=== PATIENT | male | born 1985 | race American Indian/Alaskan Native ===

== ENCOUNTER 2017-04-28 09:31 | Emergency (ER) | payer MEDICAID, OTHER ==
--- NOTE | 2017-04-28 09:46 | EDM.PDOC ---
ED HPI GENERAL MEDICAL PROBLEM - General Stated Complaint: LEFT SHOULDER OUT OF JOINT Time Seen by Provider: 04/28/17 09:35 Source of Information: Reports: Patient History Limitations: Reports: No Limitations - History of Present Illness INITIAL COMMENTS - FREE TEXT/NARRATIVE: This 32 yo male patient reports to the ED with left shoulder pain. The patient reports about 20-25 minutes ago he was outside with his child and was swinging on a pole when he thinks his shoulder got popped out of joint. The patient reports his father attempted to put it back into place once. The patient reports after his father attempted to get his shoulder back, he noticed numbness in his left arm. The patient rates his pain at a 9/10 at the time of assessment. The patient was able to move his left hand, but movements were limited by pain. Onset: Today Onset Date: 04/28/17 Onset Time: 09:15 Duration: Minutes:, Constant Location: Reports: Upper Extremity, Left Quality: Reports: Ache, Sharp, Throbbing Severity: Severe Improves with: Reports: None Worsens with: Reports: None Context: Reports: Other Associated Symptoms: Reports: No Other Symptoms - Related Data Allergies Allergy/AdvReac Type Severity Reaction Status Date / Time codeine Allergy Swelling Verified 04/28/17 09:38 ketorolac [From Toradol] Allergy Hives Verified 04/28/17 09:38 Home Meds: Home Meds Gabapentin [Neurontin] 800 mg PO QID 04/28/17 [History] cloNIDine [Catapres] 0.1 mg PO BID 04/28/17 [History] hydrOXYzine HCl [Atarax] 10 mg PO TID 04/28/17 [History] Review of Systems - Review of Systems Review Of Systems: ROS reveals no pertinent complaints other than HPI. ED EXAM, GENERAL - Physical Exam Exam: See Below Exam Limited By: No Limitations General Appearance: Alert, WD/WN, Moderate Distress, Thin Eye Exam: Bilateral Eye: EOMI, Normal Inspection, PERRL Ears: Normal External Exam, Normal Canal, Hearing Grossly Normal, Normal TMs Nose: Normal Inspection, Normal Mucosa, No Blood Throat/Mouth: Normal Inspection, Normal Lips, Normal Teeth, Normal Gums, Normal Oropharynx, Normal Voice, No Airway Compromise Head: Atraumatic, Normocephalic Neck: Normal Inspection, Supple, Non-Tender, Full Range of Motion Respiratory/Chest: No Respiratory Distress, Lungs Clear, Normal Breath Sounds, No Accessory Muscle Use, Chest Non-Tender Cardiovascular: Normal Peripheral Pulses, Regular Rate, Rhythm, No Edema, No Gallop, No JVD, No Murmur, No Rub GI/Abdominal: Normal Bowel Sounds, Soft, Non-Tender, No Organomegaly, No Distention, No Abnormal Bruit, No Mass (Male) Exam: Deferred Rectal (Males) Exam: Deferred Back Exam: Normal Inspection, Full Range of Motion, NT Extremities: Arm Pain (left shoulder pain with deformity) Neurological: Alert, Oriented, CN II-XII Intact, Normal Cognition, Normal Gait Psychiatric: Normal Affect, Normal Mood Skin Exam: Warm, Dry, Intact, Normal Color, No Rash Lymphatic: No Adenopathy Course - Vital Signs Last Recorded V/S: Last Vital Signs Temp 36.9 C 04/28/17 09:40 Pulse 115 H 04/28/17 09:40 Resp 20 04/28/17 09:40 BP 127/95 H 04/28/17 09:40 Pulse Ox 96 04/28/17 09:40 - Orders/Labs/Meds Orders: Active Orders 24 hr Category Date Time Status Shoulder Comp Lt [CR] Urgent Exams 04/28/17 09:38 Ordered DME for Discharge [COMM] Urgent Oth 04/28/17 10:21 Ordered - Re-Assessments/Exams Free Text/Narrative Re-Assessment/Exam: 04/28/17 10:23 The patient was advised of the x-ray results during the visit. The patient was awoken from sleep to give the x-ray results. The patient was having difficulties speaking due to taking his Clonidine prior to coming to the ED. Departure - Departure Time of Disposition: 10:24 Disposition: Home, Self-Care 01 Condition: Fair Clinical Impression: Left shoulder strain Qualifiers: Encounter type: initial encounter Qualified Code(s): S46.912A - Strain of unspecified muscle, fascia and tendon at shoulder and upper arm level, left arm , initial encounter - Discharge Information Instructions: Shoulder Sprain Care Plan Goals: The patient was advised of the examination and x-ray results during the visit. The patient was placed in a right shoulder immobilizer and given an oral dose of [place] while in the ED. The patient was advised to follow-up with his primary care facility or orthopedic provider for continued evaluation and further management. - My Orders Last 24 Hours: My Active Orders 04/28/17 09:38 Shoulder Comp Lt [CR] Urgent 04/28/17 10:21 DME for Discharge [COMM] Urgent - Assessment/Plan Last 24 Hours: My Active Orders 04/28/17 09:38 Shoulder Comp Lt [CR] Urgent 04/28/17 10:21 DME for Discharge [COMM] Urgent
[2017-04-28] MEDS ORDERED: Acetaminophen/HYDROcodone 325-10 MG Tab PO ONE (10:27)
== END 2017-04-28 10:38 | disposition home or self-care (01) ==
LOC: DL.ED 09:31 → MERGE 09:31 → DL.ED 10:38
DX: S46.912A Strain of unspecified muscle, fascia and tendon at shoulder and upper arm level, left arm, initial encounter (principal); Z88.5 Allergy status to narcotic agent; Z88.8 Allergy status to other drugs, medicaments and biological substances; X50.9XXA Other and unspecified overexertion or strenuous movements or postures, initial encounter
CPT/HCPCS: 73030; 99283; A9270

== ENCOUNTER 2017-08-29 16:37 | Emergency (ER) | payer MEDICAID ==
[2017-08-29] MEDS ORDERED: LORazepam 1 MG Tab PO ONE (17:32)
[2017-08-29 18:09] LABS: ANION GAP 10.6; CHLORIDE,CL 104 mmol/L (101-111); SODIUM,NA 138 mmol/L (135-145)
--- NOTE | 2017-08-29 18:39 | EDM.PDOCBH ---
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 He states that he was very jittery and anxious. He states he has been having some thoughts about dying, but does not have a plan does not think that he would hurt himself. Pt asks if he can have something to calm him down. Onset: Gradual - Related Data Allergies Allergy/AdvReac Type Severity Reaction Status Date / Time codeine Allergy Swelling Verified 03/31/17 16:02 MDT ketorolac [From Toradol] Allergy Itching Verified 03/31/17 16:02 MDT Home Meds: Home Meds Albuterol [Proventil HFA] 2 puff INH QID PRN #1 inhaler 03/29/17 [Rx] Albuterol [Ventolin Syrup 2 MG/5 ML] 1 dose INH DAILY PRN 03/29/17 [History] Gabapentin [Neurontin] 800 mg PO QID #20 tablet 03/29/17 [Rx] Gabapentin [Neurontin] 800 mg PO TID 03/29/17 [History] cloNIDine HCl [Catapres] 0.2 mg PO BEDTIME #5 tablet 03/29/17 [Rx] cloNIDine [Catapres] 0.5 mg PO DAILY 03/29/17 [History] oxyCODONE HCl/Acetaminophen [Percocet 5-325 mg Tablet] 1 each PO Q6H PRN #20 tablet 03/29/17 [Rx] Past Medical History HEENT History: Reports: None Cardiovascular History: Reports: Hypertension Respiratory History: Reports: Asthma Gastrointestinal History: Reports: None Genitourinary History: Reports: None Musculoskeletal History: Reports: Fracture Neurological History: Reports: None Psychiatric History: Reports: Anxiety, Depression Endocrine/Metabolic History: Reports: None Hematologic History: Reports: None Immunologic History: Reports: None Oncologic (Cancer) History: Reports: None Dermatologic History: Reports: None - Infectious Disease History Infectious Disease History: Reports: None - Past Surgical History HEENT Surgical History: Reports: None Respiratory Surgical History: Reports: None GI Surgical History: Reports: None Endocrine Surgical History: Reports: None Musculoskeletal Surgical History: Reports: None Social & Family History - Family History Family Medical History: Noncontributory - Tobacco Use Smoking Status *Q: Current Every Day Smoker Years of Tobacco use: 4 Packs/Tins Daily: 0.5 Second Hand Smoke Exposure: No - Caffeine Use Caffeine Use: Reports: Soda - Recreational Drug Use Recreational Drug Use: Yes Drug Use in Last 12 Months: Yes Recreational Drug Type: Reports: Methamphetamine Recreational Drug Use Frequency: Daily Recreational Drug Last Use: 08-25-17 ED ROS GENERAL - Review of Systems Review Of Systems: ROS reveals no pertinent complaints other than HPI. ED EXAM, BEHAVIORAL HEALTH - Physical Exam Exam: See Below Exam Limited By: No Limitations General Appearance: Alert, WD/WN, Anxious Eye Exam: Bilateral Eye: EOMI, Normal Inspection, PERRL Ears: Normal External Exam, Hearing Grossly Normal Nose: Normal Inspection Throat/Mouth: Normal Inspection, Normal Voice, No Airway Compromise Head: Atraumatic, Normocephalic Neck: Normal Inspection Respiratory/Chest: No Respiratory Distress, Lungs Clear, Normal Breath Sounds, No Accessory Muscle Use, Chest Non-Tender Cardiovascular: Normal Peripheral Pulses, Regular Rate, Rhythm, No Edema, No Gallop, No JVD, No Murmur, No Rub GI/Abdominal: Normal Bowel Sounds, Soft, Non-Tender, No Distention (Male) Exam: Deferred Rectal (Males) Exam: Deferred Back Exam: Normal Inspection, Full Range of Motion Extremities: Normal Inspection, Normal Range of Motion, Non-Tender, Normal Capillary Refill, No Pedal Edema Neurological: Alert, Normal Mood/Affect, CN II-XII Intact, Normal Cognition, Normal Gait, Normal Reflexes, No Motor/Sensory Deficits, Oriented x 3 Psychiatric: Alert, Normal Cognition, Oriented, Restless Skin Exam: Warm, Dry, Intact, Normal color, No rash COURSE, BEHAVIORAL HEALTH COMP - Course Vital Signs: Last Vital Signs Temp 97.6 F 08/29/17 16:49 Pulse 95 08/29/17 16:49 Resp 18 08/29/17 16:49 BP 143/81 H 08/29/17 16:49 Pulse Ox 98 08/29/17 16:49 Orders, Labs, Meds: Laboratory Tests 08/29/17 08/29/17 08/29/17 Range/Units 17:00 17:00 17:36 WBC 8.2 (5.0-10.0) 10^3/uL RBC 5.03 (4.6-6.2) 10^6/uL Hgb 15.0 (14.0-18.0) g/dL Hct 44.0 (40.0-54.0) % MCV 87.5 (80-100) fL MCH 29.8 (27.0-34.0) pg MCHC 34.1 (33.0-35.0) g/dL Plt Count 298 (150-450) 10^3/uL Neut % (Auto) 40.1 L (42.2-75.2) % Lymph % (Auto) 40.1 (20.5-50.1) % [place] % (Auto) 14.7 H (2-8) % Eos % (Auto) 4.0 H (1.0-3.0) % Baso % (Auto) 1.1 H (0.0-1.0) % Add Manual Diff Yes Neutrophils % (Manual) 40 L (42-75) % Lymphocytes % (Manual) 49 (20-50) % Monocytes % (Manual) 9 H (2-8) % Eosinophils % (Manual) 2 (1-3) % Platelet Estimate Adequate Giant Platelets Few Sodium (135-145) mmol/L Potassium (3.6-5.0) mmol/L Chloride (101-111) mmol/L Carbon Dioxide (21.0-31.0) mmol/L Anion Gap BUN (7-18) mg/dL Creatinine (0.6-1.3) mg/dL Est Cr Clr Drug Dosing mL/min Estimated GFR (MDRD) BUN/Creatinine Ratio Glucose (74-105) mg/dL Calcium (8.4-10.2) mg/dl Magnesium (1.8-2.5) mg/dL Total Bilirubin (0.2-1.0) mg/dL AST (10-42) IU/L ALT (10-60) IU/L Alkaline Phosphatase (42-121) IU/L Total Protein (6.7-8.2) g/dl Albumin (3.2-5.5) g/dl Globulin Albumin/Globulin Ratio TSH, Ultra Sensitive (0.45-5.33) uIu/mL Urine Color Yellow (YELLOW) Urine Appearance Clear (CLEAR) Urine pH 7.0 (5.0-9.0) Ur Specific [place] 1.015 (1.005-1.030) Urine Protein Negative (NEGATIVE) Urine Glucose (UA) Negative (NEGATIVE) Urine Ketones Negative (NEGATIVE) Urine Occult Blood Negative (NEGATIVE) Urine Nitrite Negative (NEGATIVE) Urine Bilirubin Negative (NEGATIVE) Urine Urobilinogen 0.2 (0.2-1.0) mg/dL Ur Leukocyte Esterase Negative (NEGATIVE) Urine RBC 0-5 /HPF Urine WBC 0-5 (0-5/HPF) /HPF Ur Epithelial Cells Not seen /HPF Urine Bacteria Rare (0-FEW/HPF) /HPF Urine Opiates Screen Negative (NEGATIVE) Ur Oxycodone Screen Negative (NEGATIVE) Urine Methadone Screen Negative (NEGATIVE) Ur Barbiturates Screen Negative (NEGATIVE) U Tricyclic Antidepress Negative (NEGATIVE) Ur Phencyclidine Scrn Negative (NEGATIVE) Ur Amphetamine Screen Negative (NEGATIVE) U Methamphetamines Scrn Negative (NEGATIVE) Urine MDMA Screen Negative (NEGATIVE) U Benzodiazepines Scrn Negative (NEGATIVE) Urine Cocaine Screen Negative (NEGATIVE) U Marijuana (THC) Screen Negative (NEGATIVE) Ethyl Alcohol mg/dL 08/29/17 08/29/17 Range/Units 17:36 17:36 WBC (5.0-10.0) 10^3/uL RBC (4.6-6.2) 10^6/uL Hgb (14.0-18.0) g/dL Hct (40.0-54.0) % MCV (80-100) fL MCH (27.0-34.0) pg MCHC (33.0-35.0) g/dL Plt Count (150-450) 10^3/uL Neut % (Auto) (42.2-75.2) % Lymph % (Auto) (20.5-50.1) % [place] % (Auto) (2-8) % Eos % (Auto) (1.0-3.0) % Baso % (Auto) (0.0-1.0) % Add Manual Diff Neutrophils % (Manual) (42-75) % Lymphocytes % (Manual) (20-50) % Monocytes % (Manual) (2-8) % Eosinophils % (Manual) (1-3) % Platelet Estimate Giant Platelets Sodium 138 (135-145) mmol/L Potassium 3.6 (3.6-5.0) mmol/L Chloride 104 (101-111) mmol/L Carbon Dioxide 27.0 (21.0-31.0) mmol/L Anion Gap 10.6 BUN 7 (7-18) mg/dL Creatinine 0.8 (0.6-1.3) mg/dL Est Cr Clr Drug Dosing 130.63 mL/min Estimated GFR (MDRD) > 60 BUN/Creatinine Ratio 8.75 Glucose 91 (74-105) mg/dL Calcium 8.4 (8.4-10.2) mg/dl Magnesium 1.9 (1.8-2.5) mg/dL Total Bilirubin 0.5 (0.2-1.0) mg/dL AST 28 (10-42) IU/L ALT 29 (10-60) IU/L Alkaline Phosphatase 74 (42-121) IU/L Total Protein 6.4 L (6.7-8.2) g/dl Albumin 3.7 (3.2-5.5) g/dl Globulin 2.7 Albumin/Globulin Ratio 1.37 TSH, Ultra Sensitive 1.07 (0.45-5.33) uIu/mL Urine Color (YELLOW) Urine Appearance (CLEAR) Urine pH (5.0-9.0) Ur Specific [place] (1.005-1.030) Urine Protein (NEGATIVE) Urine Glucose (UA) (NEGATIVE) Urine Ketones (NEGATIVE) Urine Occult Blood (NEGATIVE) Urine Nitrite (NEGATIVE) Urine Bilirubin (NEGATIVE) Urine Urobilinogen (0.2-1.0) mg/dL Ur Leukocyte Esterase (NEGATIVE) Urine RBC /HPF Urine WBC (0-5/HPF) /HPF Ur Epithelial Cells /HPF Urine Bacteria (0-FEW/HPF) /HPF Urine Opiates Screen (NEGATIVE) Ur Oxycodone Screen (NEGATIVE) Urine Methadone Screen (NEGATIVE) Ur Barbiturates Screen (NEGATIVE) U Tricyclic Antidepress (NEGATIVE) Ur Phencyclidine Scrn (NEGATIVE) Ur Amphetamine Screen (NEGATIVE) U Methamphetamines Scrn (NEGATIVE) Urine MDMA Screen (NEGATIVE) U Benzodiazepines Scrn (NEGATIVE) Urine Cocaine Screen (NEGATIVE) U Marijuana (THC) Screen (NEGATIVE) Ethyl Alcohol < 5 mg/dL Medications Discontinued Medications Generic Name Dose Route Start Last Admin Trade Name Freq PRN Reason Stop Dose Admin Lorazepam 1 mg 08/29/17 17:32 08/29/17 17:57 Ativan PO 08/29/17 17:33 Not Given ONETIME ONE Re-Assessment/Re-Exam: Crisis Line was notified. SARBJIT Clayton from [facility] and Crisis Line stated that he can be sent to group home with a hold for 24 hours until he can be seen in the morning. Patient was anxious and kept asking for medication to calm him down and stating that he will leave and go back to the CRU. Patient walked out without being discharged. Matilde Dowd was notified at Crisis Line that patient left without being discharged. Departure - Departure Time of Disposition: 18:39 Disposition: Against Medical Advice 07 Condition: Fair Clinical Impression: Depressive disorder, Drug-seeking behavior - Discharge Information Forms: ED Department Discharge
== END 2017-08-29 18:43 | disposition left against medical advice (07) ==
LOC: DL.ED 16:37 → MERGE 16:37 → DL.ED 18:43
DX: F32.9 Major depressive disorder, single episode, unspecified (principal); Z76.5 Malingerer [conscious simulation]; I10 Essential (primary) hypertension; J45.909 Unspecified asthma, uncomplicated; F17.210 Nicotine dependence, cigarettes, uncomplicated; Z79.899 Other long term (current) drug therapy; Z88.5 Allergy status to narcotic agent; Z88.6 Allergy status to analgesic agent
CPT/HCPCS: 36415; 80053; 80305; 81001; 83735; 84443; 85025; 99284; G0480

== ENCOUNTER 2020-07-24 13:43 | Observation (INO) | payer MEDICAID, OTHER ==
[2020-07-24] MEDS: LORazepam 2 MG/ML SDV IVPUSH PRN ×2 (13:36→19:52)
[~2020-07-24 13:43] MED LIST: LORazepam 2 MG/ML SDV ONE; levETIRAcetam in NaCl (iso-os) 100 ML ONE; levETIRAcetam in NaCl (iso-os) 500 MG in Premix Bag 1 BAG IV ONE
[2020-07-24 14:07] LABS: ANION GAP 13.3 mEq/L (7-13); CHLORIDE,CL 103 mmol/L (98-107); SODIUM,NA 135 mmol/L (136-145)
[2020-07-24] MEDS ORDERED: Naproxen 500 MG Tab PO ONE (15:07)
--- NOTE | 2020-07-24 15:13 | CR ---
EXAMINATION: Shoulder Comp Lt SEX: Male AGE: 35 years CLINICAL history: INTERPRETATION: 1. CONCLUSION: 35-year-old male left shoulder pain following a seizure Interpretation: Prominent Hill-Sachs notch like deformity lateral aspect humeral head consistent with previous dislocation. No sign of pathologic skeletal lesion, acute left shoulder fracture or glenohumeral dislocation. Chronic arthritic changes ipsilateral acromioclavicular joint. No fractures of the underlying bony thorax. Left lung apex clear. CONCLUSION: No acute fracture or dislocation left shoulder.
--- NOTE | 2020-07-24 15:18 | CT ---
EXAMINATION: Head wo Cont SEX: Male AGE: 35 years CLINICAL HISTORY: 35-year-old male complaining of postictal PAIN (seizure like activity). Scan technique: Volume acquisition of data emergency unenhanced CT scan of the head and brain obtained with patient lying supine on the Siemens multislice scanner [place], [place]. All data archived in the PACS system for storage, reformatting axial/sagittal/coronal planes and study (bone/brain windows). Interpretation: 1. Uniformly thick bony calvarium without sign of skull fracture, underlying brain contusion or epidural/subdural hematoma. 2. Symmetric clear pneumatization of the paranasal and mastoid sinuses. 3. Symmetric wilkes-white matter pattern (mild atrophy over the convexities). Mirror-image normal ventricular system i.e. no hydrocephalus. 4. No supratentorial or posterior fossa mass lesion. 5. No areas of ischemic infarct or encephalomalacia. No arachnoid cyst. 6. Cerebellum and brainstem unremarkable. 7. No sign of acute intracerebral, intraventricular or subarachnoid bleed. CONCLUSION: No sign of skull fracture, intracranial mass or bleed.
--- NOTE | 2020-07-24 15:55 | EDM.PDOC ---
ED HPI GENERAL MEDICAL PROBLEM - General Chief Complaint: Neuro Symptoms/Deficits Time Seen by Provider: 07/24/20 13:45 Source of Information: Reports: Patient, EMS, EMS Notes Reviewed, Police, RN, RN Notes Reviewed History Limitations: Reports: No Limitations - History of Present Illness INITIAL COMMENTS - FREE TEXT/NARRATIVE: Pt is a 35 year old male who presents to ER per [facility] from [facility] accompanied by Distribution Systems Serviceperson with c/o seizure like activity. Patient and CO state he had seizures this am at the correction, approx 4-5 seizures that lasted 30 seconds or less. Patient states with the first seizure he fell and injured his left shoulder. 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 Shortly after arrival, patient had another 30second seizure like activity. Patient did not display any post-ictal actions other than stuttering with talking. Patient did respond to pain during the seizure like activity. Patient states his first seizure was approx 2 weeks ago, and he was prescribed Keppra at that time by Dr. Velasco at [place]. He states he again had seizure like activity 2 days ago and the Keppra dosage was increased. He states he is set up to see a Neurologist, but unsure when. Patient does c/o pain in the left shoulder. Onset: Today, Sudden Left Shoulder Pain Score (Numeric/FACES): 7 - Related Data Allergies Allergy/AdvReac Type Severity Reaction Status Date / Time codeine Allergy Swelling Verified 07/24/20 13:37 ketorolac [From Toradol] Allergy Hives Verified 07/24/20 13:37 Home Meds: Home Meds Albuterol [IJP: Ventolin HFA] 2 puff INH .TWICE DAILY PRN 09/17/17 [History] Gabapentin [Neurontin] 900 mg PO TID 07/24/20 [History] Naproxen 500 mg PO DAILY 07/24/20 [History] levETIRAcetam [Levetiracetam ER] 500 mg PO BID 07/24/20 [History] lisinopriL [Lisinopril] 10 mg PO 07/24/20 [History] Past Medical History HEENT History: Reports: None Cardiovascular History: Reports: Hypertension Respiratory History: Reports: Asthma Gastrointestinal History: Reports: None Genitourinary History: Reports: None Musculoskeletal History: Reports: Fibromyalgia, Fracture, Other (See Below) Other Musculoskeletal History: carpel tunnel Neurological History: Reports: None Psychiatric History: Reports: Addiction, Anxiety, Depression Endocrine/Metabolic History: Reports: None Hematologic History: Reports: None Immunologic History: Reports: None Oncologic (Cancer) History: Reports: None Dermatologic History: Reports: None - Infectious Disease History Infectious Disease History: Reports: None - Past Surgical History HEENT Surgical History: Reports: None Respiratory Surgical History: Reports: None GI Surgical History: Reports: None Endocrine Surgical History: Reports: None Musculoskeletal Surgical History: Reports: Other (See Below), Shoulder Surgery Other Musculoskeletal Surgeries/Procedures:: left femur and hip fracture/repair Social & Family History - Family History Family Medical History: No Pertinent Family History - Tobacco Use Years of Tobacco use: 20 - Caffeine Use Caffeine Use: Reports: Energy Drinks, Soda - Recreational Drug Use Recreational Drug Use: Yes ED ROS GENERAL - Review of Systems Review Of Systems: Comprehensive ROS is negative, except as noted in HPI. ED EXAM, NEURO - Physical Exam Exam: See Below Exam Limited By: No Limitations General Appearance: Alert, WD/WN, No Apparent Distress Eye Exam: Bilateral Eye: EOMI, Normal Inspection Ears: Normal External Exam, Hearing Grossly Normal Nose: Normal Inspection Throat/Mouth: Normal Inspection, Normal Voice, No Airway Compromise Head Exam: Atraumatic, Normocephalic Neck: Normal Inspection Respiratory/Chest: No Respiratory Distress, Lungs Clear, Normal Breath Sounds, No Accessory Muscle Use, Chest Non-Tender Cardiovascular: Normal Peripheral Pulses, Regular Rate, Rhythm, No Edema, No Gallop, No JVD, No Murmur, No Rub GI/Abdominal: Normal Bowel Sounds, Soft, Non-Tender (Male) Exam: Deferred Rectal (Males) Exam: Deferred Neurological: Alert, Normal Mood/Affect, Normal Dorsiflexion, CN II-XII Intact, Normal Plantar Flexion, Normal Gait, Normal Reflexes, No Motor/Sensory Deficits, Oriented x 3 Back Exam: Normal Inspection, Full Range of Motion, NT Extremities: Normal Inspection, No Pedal Edema, Normal Capillary Refill, Arm Pain (left shoulder), Limited Range of Motion (left shoulder) Psychiatric: Normal Affect, Normal Mood Skin Exam: Warm, Dry, Intact, Normal Color, No Rash Course - Vital Signs Last Recorded V/S: Last Vital Signs Temp 99.1 F 07/24/20 13:43 Pulse 98 07/24/20 13:43 Resp 14 07/24/20 13:43 BP 112/80 07/24/20 13:43 Pulse Ox 100 07/24/20 13:43 - Orders/Labs/Meds Orders: Active Orders 24 hr Category Date Time Status CULTURE BLOOD [BC] Stat Lab 07/24/20 13:38 Received CULTURE BLOOD [BC] Stat Lab 07/24/20 14:22 Received LEVETIRACETAM, S [REF] Stat Lab 07/24/20 14:22 Received REFLEX LACTIC ACID YES OR NO [CHEM] Routine Lab 07/24/20 14:14 Received LORazepam [Ativan] Med 07/24/20 13:34 Active 2 mg IVPUSH BEDTIME PRN Blood Culture x2 Reflex Set [OM.PC] Stat Oth 07/24/20 13:48 Ordered Medication Orders Lorazepam (Ativan) 2 mg IVPUSH BEDTIME PRN PRN Reason: Seizures Last Admin: 07/24/20 13:36 Dose: 2 mg Documented by: TEX Labs: Laboratory Tests 07/24/20 07/24/20 07/24/20 Range/Units 13:38 13:38 13:38 WBC 14.6 H (5.0-10.0) 10^3/uL RBC 4.92 (4.6-6.2) 10^6/uL Hgb 14.6 (14.0-18.0) g/dL Hct 43.9 (40.0-54.0) % MCV 89.2 (80-100) fL MCH 29.7 (27.0-34.0) pg MCHC 33.3 (33.0-35.0) g/dL Plt Count 299 (150-450) 10^3/uL Neut % (Auto) 73.9 (42.2-75.2) % Lymph % (Auto) 15.7 L (20.5-50.1) % [place] % (Auto) 7.8 (2-8) % Eos % (Auto) 2.1 (1.0-3.0) % Baso % (Auto) 0.5 (0.0-1.0) % Add Manual Diff Yes Neutrophils % (Manual) 82 H (42-75) % Band Neutrophils % 1 % Lymphocytes % (Manual) 11 L (20-50) % Monocytes % (Manual) 3 (2-8) % Basophils % (Manual) 2 Promyelocytes % 1 Sodium 135 L (136-145) mmol/L Potassium 4.3 (3.5-5.1) mmol/L Chloride 103 (98-107) mmol/L Carbon Dioxide 23 (21-32) mmol/L Anion Gap 13.3 H (7-13) mEq/L BUN 21 H (7-18) mg/dL Creatinine 1.24 (0.70-1.30) mg/dL Est Cr Clr Drug Dosing TNP Estimated GFR (MDRD) > 60 BUN/Creatinine Ratio 16.9 (No establ ref range) Glucose 98 (74-99) mg/dL Lactic Acid 4.2 H* (0.4-2.0) mmol/L Calcium 8.4 L (8.5-10.1) mg/dL Total Bilirubin 0.2 (0.2-1.0) mg/dL AST 18 (15-37) U/L ALT 39 (16-63) U/L Alkaline Phosphatase 63 (46-116) U/L Troponin I < 0.017 (0.000-0.056) ng/mL Total Protein 6.8 (6.4-8.2) g/dL Albumin 3.6 (3.4-5.0) g/dL Globulin 3.2 Albumin/Globulin Ratio 1.1 Urine Color (YELLOW) Urine Appearance (CLEAR) Urine pH (5.0-9.0) Ur Specific [place] (1.005-1.030) Urine Protein (NEGATIVE) Urine Glucose (UA) (NEGATIVE) Urine Ketones (NEGATIVE) Urine Occult Blood (NEGATIVE) Urine Nitrite (NEGATIVE) Urine Bilirubin (NEGATIVE) Urine Urobilinogen (0.2-1.0) mg/dL Ur Leukocyte Esterase (NEGATIVE) Urine Opiates Screen (NEGATIVE) Ur Oxycodone Screen (NEGATIVE) Urine Methadone Screen (NEGATIVE) Ur Barbiturates Screen (NEGATIVE) U Tricyclic Antidepress (NEGATIVE) Ur Phencyclidine Scrn (NEGATIVE) Ur Amphetamine Screen (NEGATIVE) U Methamphetamines Scrn (NEGATIVE) Urine MDMA Screen (NEGATIVE) U Benzodiazepines Scrn (NEGATIVE) Urine Cocaine Screen (NEGATIVE) U Marijuana (THC) Screen (NEGATIVE) Ethyl Alcohol < 3 (0) mg/dL 07/24/20 07/24/20 Range/Units 14:00 14:00 WBC (5.0-10.0) 10^3/uL RBC (4.6-6.2) 10^6/uL Hgb (14.0-18.0) g/dL Hct (40.0-54.0) % MCV (80-100) fL MCH (27.0-34.0) pg MCHC (33.0-35.0) g/dL Plt Count (150-450) 10^3/uL Neut % (Auto) (42.2-75.2) % Lymph % (Auto) (20.5-50.1) % [place] % (Auto) (2-8) % Eos % (Auto) (1.0-3.0) % Baso % (Auto) (0.0-1.0) % Add Manual Diff Neutrophils % (Manual) (42-75) % Band Neutrophils % % Lymphocytes % (Manual) (20-50) % Monocytes % (Manual) (2-8) % Basophils % (Manual) Promyelocytes % Sodium (136-145) mmol/L Potassium (3.5-5.1) mmol/L Chloride (98-107) mmol/L Carbon Dioxide (21-32) mmol/L Anion Gap (7-13) mEq/L BUN (7-18) mg/dL Creatinine (0.70-1.30) mg/dL Est Cr Clr Drug Dosing Estimated GFR (MDRD) BUN/Creatinine Ratio (No establ ref range) Glucose (74-99) mg/dL Lactic Acid (0.4-2.0) mmol/L Calcium (8.5-10.1) mg/dL Total Bilirubin (0.2-1.0) mg/dL AST (15-37) U/L ALT (16-63) U/L Alkaline Phosphatase (46-116) U/L Troponin I (0.000-0.056) ng/mL Total Protein (6.4-8.2) g/dL Albumin (3.4-5.0) g/dL Globulin Albumin/Globulin Ratio Urine Color Yellow (YELLOW) Urine Appearance Slightly cloudy (CLEAR) Urine pH 7.0 (5.0-9.0) Ur Specific [place] 1.025 (1.005-1.030) Urine Protein Negative (NEGATIVE) Urine Glucose (UA) Negative (NEGATIVE) Urine Ketones Negative (NEGATIVE) Urine Occult Blood Negative (NEGATIVE) Urine Nitrite Negative (NEGATIVE) Urine Bilirubin Negative (NEGATIVE) Urine Urobilinogen 0.2 (0.2-1.0) mg/dL Ur Leukocyte Esterase Negative (NEGATIVE) Urine Opiates Screen Negative (NEGATIVE) Ur Oxycodone Screen Negative (NEGATIVE) Urine Methadone Screen Negative (NEGATIVE) Ur Barbiturates Screen Negative (NEGATIVE) U Tricyclic Antidepress Negative (NEGATIVE) Ur Phencyclidine Scrn Negative (NEGATIVE) Ur Amphetamine Screen Negative (NEGATIVE) U Methamphetamines Scrn Negative (NEGATIVE) Urine MDMA Screen Negative (NEGATIVE) U Benzodiazepines Scrn Positive H (NEGATIVE) Urine Cocaine Screen Negative (NEGATIVE) U Marijuana (THC) Screen Negative (NEGATIVE) Ethyl Alcohol (0) mg/dL Meds: Medications Generic Name Dose Route Start Last Admin Trade Name Freq PRN Reason Stop Dose Admin Lorazepam 2 mg 07/24/20 13:34 07/24/20 13:36 Ativan IVPUSH 2 mg BEDTIME PRN Administration Seizures Discontinued Medications Generic Name Dose Route Start Last Admin Trade Name Freq PRN Reason Stop Dose Admin Levetiracetam Confirm 07/24/20 13:25 07/24/20 13:37 Levetiracetam In Nacl (Iso-Os) Administered 07/24/20 13:26 Not Given Dose 100 mls @ as directed .ROUTE .STK-MED ONE Levetiracetam 500 mg/ Premix 100 mls @ 400 mls/hr 07/24/20 13:33 07/24/20 13:36 IV 07/24/20 13:34 400 mls/hr ONETIME ONE Administration Lorazepam Confirm 07/24/20 13:27 07/24/20 13:37 Ativan Administered 07/24/20 13:28 Not Given Dose 2 mg .ROUTE .STK-MED ONE Naproxen 500 mg 07/24/20 15:07 07/24/20 15:12 Naprosyn PO 07/24/20 15:08 500 mg ONETIME ONE Administration - Radiology Interpretation Free Text/Narrative:: Head CT wo contrast: No acute findings Left shoulder xray: No acute fracture or dislocation See rad report - Re-Assessments/Exams Free Text/Narrative Re-Assessment/Exam: 07/24/20 16:06 Patient case was discussed with Dr. Adair at [facility] who states the patient can be observed at our facility and follow up outpatient with Neurology. Patient case discussed with Dr. Adams who agreed to accept the patient for observation admission. Departure - Departure Time of Disposition: 16:06 Disposition: Refer to Observation Condition: Good Clinical Impression: Seizure-like activity Shoulder pain, left Qualifiers: Chronicity: chronic Qualified Code(s): M25.512 - Pain in left shoulder - Discharge Information *PRESCRIPTION DRUG MONITORING PROGRAM REVIEWED*: No *COPY OF PRESCRIPTION DRUG MONITORING REPORT IN PATIENT NEREIDA: No Sepsis Event Note (ED) - Evaluation Sepsis Screening Result: No Definite Risk - Focused Exam Vital Signs: Vital Signs Temp Pulse Resp BP Pulse Ox 07/24/20 13:43 99.1 F 98 14 112/80 100 - My Orders Last 24 Hours: My Active Orders 07/24/20 13:34 LORazepam [Ativan] 2 mg IVPUSH BEDTIME PRN 07/24/20 14:22 LEVETIRACETAM, S [REF] Stat - Assessment/Plan Last 24 Hours: My Active Orders 07/24/20 13:34 LORazepam [Ativan] 2 mg IVPUSH BEDTIME PRN 07/24/20 14:22 LEVETIRACETAM, S [REF] Stat
[2020-07-24] MEDS ORDERED: Albuterol 6.7 GM Inhaler INH PRN (16:01)
[2020-07-24] MEDS ORDERED: LORazepam 2 MG/ML SDV IVPUSH PRN (16:03)
[2020-07-24] MEDS: Sodium Chloride 0.9% 1,000 ML IV SCH (16:13)
--- NOTE | 2020-07-24 16:16 | PCM.HP ---
H&P History of Present Illness - General Date of Service: 07/24/20 Admit Problem/Dx: Admission Diagnosis/Problem Admission Diagnosis/Problem Seizure-like activity Source of Information: Patient - History of Present Illness Initial Comments - Free Text/Narative: Is a 35-year-old man with medical history of hypertension asthma and apparently seizure. The patient has been on Keppra and gabapentin for seizure prophylaxis. He has been [place] in sn[place]. He presented to the emergency room was sup posed seizures. Patient was seen to have hives to seizures in the emergency room. He tells me that his last seizure was 2 days before. I witnessed one of the incidents when there was generalized shaking of the entire body. It does not look like a seizure. Left Shoulder Pain Score (Numeric/FACES): 7 - Related Data Allergies/Adverse Reactions: Allergies Allergy/AdvReac Type Severity Reaction Status Date / Time codeine Allergy Swelling Verified 07/24/20 13:37 ketorolac [From Toradol] Allergy Hives Verified 07/24/20 13:37 Home Medications: Home Meds Albuterol [IJP: Ventolin HFA] 2 puff INH BID PRN 09/17/17 [History] Gabapentin [Neurontin] 300 mg PO TID 07/24/20 [History] Naproxen 500 mg PO BID 07/24/20 [History] levETIRAcetam [Levetiracetam ER] 500 mg PO BID 07/24/20 [History] lisinopriL [Lisinopril] 10 mg PO DAILY 07/24/20 [History] Past Medical History HEENT History: Reports: None Cardiovascular History: Reports: Hypertension Respiratory History: Reports: Asthma Gastrointestinal History: Reports: None Genitourinary History: Reports: None Musculoskeletal History: Reports: Fibromyalgia, Fracture, Other (See Below) Other Musculoskeletal History: carpel tunnel Neurological History: Reports: None Psychiatric History: Reports: Addiction, Anxiety, Depression Endocrine/Metabolic History: Reports: None Hematologic History: Reports: None Immunologic History: Reports: None Oncologic (Cancer) History: Reports: None Dermatologic History: Reports: None - Infectious Disease History Infectious Disease History: Reports: None - Past Surgical History HEENT Surgical History: Reports: None Respiratory Surgical History: Reports: None GI Surgical History: Reports: None Endocrine Surgical History: Reports: None Musculoskeletal Surgical History: Reports: Other (See Below), Shoulder Surgery Other Musculoskeletal Surgeries/Procedures:: left femur and hip fracture/repair Social & Family History - Family History Family Medical History: No Pertinent Family History - Tobacco Use Years of Tobacco use: 20 - Caffeine Use Caffeine Use: Reports: Energy Drinks, Soda - Recreational Drug Use Recreational Drug Use: Yes H&P Review of Systems - Review of Systems: Review Of Systems: See Below General: Reports: Weakness HEENT: Reports: No Symptoms Pulmonary: Reports: No Symptoms Cardiovascular: Reports: No Symptoms Gastrointestinal: Reports: No Symptoms Musculoskeletal: Reports: No Symptoms Skin: Reports: No Symptoms Neurological: Reports: Seizure Exam - Exam Exam: See Below - Vital Signs Vital Signs: Last Vital Signs Temp 37.3 C 07/24/20 13:43 Pulse 98 07/24/20 13:43 Resp 14 07/24/20 13:43 BP 112/80 07/24/20 13:43 Pulse Ox 100 07/24/20 13:43 - Exam Quality Assessment: Supplemental Oxygen General: Alert, Oriented Neck: Supple Lungs: Clear to Auscultation, Normal Respiratory Effort Cardiovascular: Regular Rate, Regular Rhythm GI/Abdominal Exam: Normal Bowel Sounds, Soft, Non-Tender, No Organomegaly, No Distention, No Abnormal Bruit, No Mass, Pelvis Stable Extremities: Normal Inspection, Normal Range of Motion, Non-Tender, No Pedal E cliff, Normal Capillary Refill - Patient Data Lab Results Last 24 hrs: Laboratory Results - last 24 hr 07/24/20 07/24/20 07/24/20 Range/Units 13:38 13:38 13:38 WBC 14.6 H (5.0-10.0) 10^3/uL RBC 4.92 (4.6-6.2) 10^6/uL Hgb 14.6 (14.0-18.0) g/dL Hct 43.9 (40.0-54.0) % MCV 89.2 (80-100) fL MCH 29.7 (27.0-34.0) pg MCHC 33.3 (33.0-35.0) g/dL Plt Count 299 (150-450) 10^3/uL Neut % (Auto) 73.9 (42.2-75.2) % Lymph % (Auto) 15.7 L (20.5-50.1) % [place] % (Auto) 7.8 (2-8) % Eos % (Auto) 2.1 (1.0-3.0) % Baso % (Auto) 0.5 (0.0-1.0) % Add Manual Diff Yes Neutrophils % (Manual) 82 H (42-75) % Band Neutrophils % 1 % Lymphocytes % (Manual) 11 L (20-50) % Monocytes % (Manual) 3 (2-8) % Basophils % (Manual) 2 Promyelocytes % 1 Sodium 135 L (136-145) mmol/L Potassium 4.3 (3.5-5.1) mmol/L Chloride 103 (98-107) mmol/L Carbon Dioxide 23 (21-32) mmol/L Anion Gap 13.3 H (7-13) mEq/L BUN 21 H (7-18) mg/dL Creatinine 1.24 (0.70-1.30) mg/dL Est Cr Clr Drug Dosing TNP Estimated GFR (MDRD) > 60 BUN/Creatinine Ratio 16.9 (No establ ref range) Glucose 98 (74-99) mg/dL Lactic Acid 4.2 H* (0.4-2.0) mmol/L Calcium 8.4 L (8.5-10.1) mg/dL Total Bilirubin 0.2 (0.2-1.0) mg/dL AST 18 (15-37) U/L ALT 39 (16-63) U/L Alkaline Phosphatase 63 (46-116) U/L Troponin I < 0.017 (0.000-0.056) ng/mL Total Protein 6.8 (6.4-8.2) g/dL Albumin 3.6 (3.4-5.0) g/dL Globulin 3.2 Albumin/Globulin Ratio 1.1 Urine Color (YELLOW) Urine Appearance (CLEAR) Urine pH (5.0-9.0) Ur Specific [place] (1.005-1.030) Urine Protein (NEGATIVE) Urine Glucose (UA) (NEGATIVE) Urine Ketones (NEGATIVE) Urine Occult Blood (NEGATIVE) Urine Nitrite (NEGATIVE) Urine Bilirubin (NEGATIVE) Urine Urobilinogen (0.2-1.0) mg/dL Ur Leukocyte Esterase (NEGATIVE) Urine Opiates Screen (NEGATIVE) Ur Oxycodone Screen (NEGATIVE) Urine Methadone Screen (NEGATIVE) Ur Barbiturates Screen (NEGATIVE) U Tricyclic Antidepress (NEGATIVE) Ur Phencyclidine Scrn (NEGATIVE) Ur Amphetamine Screen (NEGATIVE) U Methamphetamines Scrn (NEGATIVE) Urine MDMA Screen (NEGATIVE) U Benzodiazepines Scrn (NEGATIVE) Urine Cocaine Screen (NEGATIVE) U Marijuana (THC) Screen (NEGATIVE) Ethyl Alcohol < 3 (0) mg/dL 07/24/20 07/24/20 Range/Units 14:00 14:00 WBC (5.0-10.0) 10^3/uL RBC (4.6-6.2) 10^6/uL Hgb (14.0-18.0) g/dL Hct (40.0-54.0) % MCV (80-100) fL MCH (27.0-34.0) pg MCHC (33.0-35.0) g/dL Plt Count (150-450) 10^3/uL Neut % (Auto) (42.2-75.2) % Lymph % (Auto) (20.5-50.1) % [place] % (Auto) (2-8) % Eos % (Auto) (1.0-3.0) % Baso % (Auto) (0.0-1.0) % Add Manual Diff Neutrophils % (Manual) (42-75) % Band Neutrophils % % Lymphocytes % (Manual) (20-50) % Monocytes % (Manual) (2-8) % Basophils % (Manual) Promyelocytes % Sodium (136-145) mmol/L Potassium (3.5-5.1) mmol/L Chloride (98-107) mmol/L Carbon Dioxide (21-32) mmol/L Anion Gap (7-13) mEq/L BUN (7-18) mg/dL Creatinine (0.70-1.30) mg/dL Est Cr Clr Drug Dosing Estimated GFR (MDRD) BUN/Creatinine Ratio (No establ ref range) Glucose (74-99) mg/dL Lactic Acid (0.4-2.0) mmol/L Calcium (8.5-10.1) mg/dL Total Bilirubin (0.2-1.0) mg/dL AST (15-37) U/L ALT (16-63) U/L Alkaline Phosphatase (46-116) U/L Troponin I (0.000-0.056) ng/mL Total Protein (6.4-8.2) g/dL Albumin (3.4-5.0) g/dL Globulin Albumin/Globulin Ratio Urine Color Yellow (YELLOW) Urine Appearance Slightly cloudy (CLEAR) Urine pH 7.0 (5.0-9.0) Ur Specific [place] 1.025 (1.005-1.030) Urine Protein Negative (NEGATIVE) Urine Glucose (UA) Negative (NEGATIVE) Urine Ketones Negative (NEGATIVE) Urine Occult Blood Negative (NEGATIVE) Urine Nitrite Negative (NEGATIVE) Urine Bilirubin Negative (NEGATIVE) Urine Urobilinogen 0.2 (0.2-1.0) mg/dL Ur Leukocyte Esterase Negative (NEGATIVE) Urine Opiates Screen Negative (NEGATIVE) Ur Oxycodone Screen Negative (NEGATIVE) Urine Methadone Screen Negative (NEGATIVE) Ur Barbiturates Screen Negative (NEGATIVE) U Tricyclic Antidepress Negative (NEGATIVE) Ur Phencyclidine Scrn Negative (NEGATIVE) Ur Amphetamine Screen Negative (NEGATIVE) U Methamphetamines Scrn Negative (NEGATIVE) Urine MDMA Screen Negative (NEGATIVE) U Benzodiazepines Scrn Positive H (NEGATIVE) Urine Cocaine Screen Negative (NEGATIVE) U Marijuana (THC) Screen Negative (NEGATIVE) Ethyl Alcohol (0) mg/dL Result Diagrams: 07/24/20 13:38 07/24/20 13:38 Problem List Initiated/Reviewed/Updated: Yes Orders Last 24hrs: Active Orders 24 hr Category Date Time Status Admission Diagnosis [ADT] Stat ADT 07/24/20 15:14 Ordered Admission Status [Patient Status] [ADT] Routine ADT 07/24/20 15:14 Active Patient Status [ADT] Routine ADT 07/24/20 15:57 Active Cardiac Monitoring [RC] CONTINUOUS Care 07/24/20 15:58 Active Intake and Output [RC] QSHIFT Care 07/24/20 15:58 Active Oxygen Therapy [RC] PRN Care 07/24/20 15:57 Active RT Post Treatment Assessment [RC] Click to Edit Care 07/24/20 16:03 Active RT Pre-Treatment Assessment [RC] Click to Edit Care 07/24/20 16:03 Active Up ad Frannie [RC] ASDIRECTED Care 07/24/20 15:57 Active VTE/DVT Education [RC] PER UNIT ROUTINE Care 07/24/20 15:57 Active Vital Signs [RC] Q4H Care 07/24/20 15:57 Active Regular Diet [DIET] Diet 07/24/20 Dinner Active BASIC METABOLIC PANEL,BMP [CHEM] AM Lab 07/25/20 05:11 Ordered CBC W/O DIFF,HEMOGRAM [HEME] AM Lab 07/25/20 05:11 Ordered CORONAVIRUS COVID-19 LEEANN [MOLEC] Stat Lab 07/24/20 15:31 Received CULTURE BLOOD [BC] Stat Lab 07/24/20 13:38 Received CULTURE BLOOD [BC] Stat Lab 07/24/20 14:22 Received LEVETIRACETAM, S [REF] Stat Lab 07/24/20 14:22 Received REFLEX LACTIC ACID YES OR NO [CHEM] Routine Lab 07/24/20 14:14 Received Albuterol [Proventil HFA] Med 07/24/20 16:01 Ordered DOSE gm INH BID PRN Enoxaparin [Lovenox] Med 07/25/20 09:00 Active 40 mg SUBCUT DAILY Gabapentin [Neurontin] Med 07/24/20 21:00 Ordered 600 mg PO TID LORazepam [Ativan] Med 07/24/20 13:34 Active 2 mg IVPUSH BEDTIME PRN LORazepam [Ativan] Med 07/24/20 16:03 Ordered 2 mg IVPUSH ONETIME PRN Naproxen [Naprosyn] Med 07/24/20 21:00 Ordered 500 mg PO BID Sodium Chloride 0.9% [Normal Saline] 1,000 ml Med 07/24/20 16:00 Active IV ASDIRECTED levETIRAcetam [Levetiracetam ER] Med 07/25/20 09:00 Ordered 1,000 mg PO BID lisinopriL [Prinivil] Med 07/25/20 09:00 Ordered 10 mg PO DAILY Blood Culture x2 Reflex Set [OM.PC] Stat Oth 07/24/20 13:48 Ordered Resuscitation Status Routine Resus Stat 07/24/20 15:57 Ordered Medication Orders Albuterol (Proventil Hfa) gm INH BID PRN PRN Reason: Shortness of Breath Enoxaparin Sodium (Lovenox) 40 mg SUBCUT DAILY K[facility]TI Gabapentin (Neurontin) 600 mg PO TID K[facility]TI Sodium Chloride (Normal Saline) 1,000 mls @ 125 mls/hr IV ASDIRECTED KIRTI Lisinopril (Prinivil) 10 mg PO DAILY [facility]TI Lorazepam (Ativan) 2 mg IVPUSH BEDTIME PRN PRN Reason: Seizures Last Admin: 07/24/20 13:36 Dose: 2 mg Documented by: TEX Lorazepam (Ativan) 2 mg IVPUSH ONETIME PRN PRN Reason: seizure Naproxen (Naprosyn) 500 mg PO BID [facility] Non-Formulary Medication (Levetiracetam [Levetiracetam Er]) 1,000 mg PO BID [facility] Assessment/Plan Comment:: Assessment/plan Is a 35-year-old man brought from [facility] with apparently seizures. #. Question of seizures The patient has been having generalized twitching of the entire body which is short-lived. No incontinence of bowel or bladder. He does not quite look like seizure. I suspect you may be dealing with pseudoseizures #. History of seizures Has been on Keppra and gabapentin #. Asthma Albuterol #. Hypertension Blood pressure is mild elevated #. Elevated lactic acid Likely due to due to generalized muscular contraction Plan: Admit patient to medical floor Intravenous lorazepam as needed Restart patient on Keppra 1000 mg twice daily We will start patient on gabapentin 600 mg 3 times a day Patient's medical chart reviewed. Discussed with emergency room physician photo studio assistant
[2020-07-24] MEDS ORDERED: Gabapentin 300 MG Cap PO SCH (21:00)
[2020-07-24] MEDS ORDERED: Naproxen 500 MG Tab PO SCH (21:00)
[2020-07-24] MEDS ORDERED: Nicotine 21 MG/24 Hr Patch TRDERM SCH (21:18)
[2020-07-25] MEDS ORDERED: traZODone 50 MG Tab PO ONE (00:04)
[2020-07-25] MEDS: Sodium Chloride 0.9% 1,000 ML IV SCH (00:14)
[2020-07-25] MEDS ORDERED: Enoxaparin 40 MG/0.4 ML Syringe SUBCUT SCH (09:00)
[2020-07-25] MEDS ORDERED: Lisinopril 10 MG Tab PO SCH (09:00)
[2020-07-25] MEDS ORDERED: LEVETIRACETAM 1000 MG PO SCH (09:00)
== END 2020-07-25 02:30 | disposition left against medical advice (07) ==
LOC: DL.ED 13:43 → DL.MS 15:14
PROVIDERS: ADMIT Hospitalist; ATTEND Hospitalist
DX: R56.9 Unspecified convulsions (principal); I10 Essential (primary) hypertension; J45.909 Unspecified asthma, uncomplicated; F41.9 Anxiety disorder, unspecified; R74.02 Elevation of levels of lactic acid dehydrogenase [LDH]; Z20.828 Contact with and (suspected) exposure to other viral communicable diseases; Z88.5 Allergy status to narcotic agent; Z88.8 Allergy status to other drugs, medicaments and biological substances; Z79.899 Other long term (current) drug therapy
CPT/HCPCS: 36415; 70450; 73030-LT; 80053; 80177; 80305-QW; 80307; 81003; 83605; 84484; 85025; 87040; 96365; 96375; 96376; 99218; 99284; 99285-25; A9270-GY; G0378; J1953; J2060; J7030; U0002

== ENCOUNTER 2021-11-03 21:43 | Emergency (ER) | payer MEDICAID, OTHER | END 2021-11-03 22:50 | disposition left against medical advice (07) | LOC: DL.ED 21:43 | DX: Z53.21 Procedure and treatment not carried out due to patient leaving prior to being seen by health care provider (principal) ==

== ENCOUNTER 2021-11-04 17:16 | Emergency (ER) | payer MEDICAID ==
[2021-11-04] MEDS ORDERED: levETIRAcetam in NaCl (iso-os) 1,000 MG in Premix Bag 1 BAG IV ONE ×2 (17:17)
[2021-11-04] MEDS ORDERED: LORazepam 2 MG/ML SDV ONE (17:23)
[2021-11-04] MEDS ORDERED: LORazepam 2 MG/ML SDV IVPUSH ONE ×2 (17:27→20:44)
[2021-11-04] MEDS ORDERED: Sodium Chloride 0.9% 1,000 ML IV ONE ×2 (17:47→18:56)
[2021-11-04 17:52] LABS: ANION GAP 16.7 mEq/L (7-13); CHLORIDE,CL 104 mmol/L (98-107); SODIUM,NA 140 mmol/L (136-145)
[2021-11-04 18:42] LABS: AMPHETAMINES,URINE POSITIVE (NEGATIVE); BARBITURATES,URINE NEGATIVE (NEGATIVE); BENZODIAZEPINE,URINE POSITIVE (NEGATIVE); MDMA (ECSTASY), URINE NEGATIVE (NEGATIVE); METHADONE,URINE NEGATIVE (NEGATIVE); METHAMPHETAMINES,URINE POSITIVE (NEGATIVE); OPIATES,URINE NEGATIVE (NEGATIVE); OXYCODONE,URINE NEGATIVE (NEGATIVE); PHENCYCLIDINE,URINE NEGATIVE (NEGATIVE); TCA,URINE NEGATIVE (NEGATIVE)
== END 2021-11-04 21:05 ==
LOC: DL.ED 17:16
DX: G40.409 Other generalized epilepsy and epileptic syndromes, not intractable, without status epilepticus (principal); F19.90 Other psychoactive substance use, unspecified, uncomplicated; I10 Essential (primary) hypertension; Z88.5 Allergy status to narcotic agent; Z88.6 Allergy status to analgesic agent; Z20.822 Contact with and (suspected) exposure to COVID-19; Z91.19 Patient's noncompliance with other medical treatment and regimen
CPT/HCPCS: 36415; 80053; 80305; 80307; 81003; 83605; 83735; 84443; 84484; 85025; 86140; 87635; 93005; 96365; 96375; 96376; 99285; J1953; J2060; J7030; 93010; U0002

== ENCOUNTER 2021-11-08 18:07 | Emergency (ER) | payer MEDICAID ==
[2021-11-08] MEDS ORDERED: Ibuprofen 800 MG Tab PO ONE ×2 (18:08→18:15)
[2021-11-08] MEDS ORDERED: Acetaminophen 325 MG Tab PO ONE (18:15)
[2021-11-08] MEDS ORDERED: Ondansetron 4 MG/2 ML SDV IV ONE (18:44)
[2021-11-08] MEDS ORDERED: Sodium Chloride 0.9% 10 ML Syringe FLUSH PRN (18:44)
[2021-11-08] MEDS ORDERED: Midazolam 1 MG/ML 2 ML SDV IVPUSH ONE (18:45)
[2021-11-08] MEDS ORDERED: Sodium Chloride 0.9% 1,000 ML IV ONE (18:45)
[2021-11-08] MEDS ORDERED: fentaNYL 100 MCG/2 ML SDV ONE (19:00)
[2021-11-08] MEDS ORDERED: fentaNYL 100 MCG/2 ML SDV IVPUSH ONE (19:06)
[2021-11-08] MEDS ORDERED: Ibuprofen 800 MG Tab ONE (19:10)
== END 2021-11-08 19:26 | disposition home or self-care (01) ==
LOC: DL.ED 18:07
DX: M24.412 Recurrent dislocation, left shoulder (principal); I10 Essential (primary) hypertension
CPT/HCPCS: 23650; 73020-LT; 73030-LT; 96374; 99283-25; 99284; A9270-GY; J2250; J2405; J3010; J3490; J7030

== ENCOUNTER 2021-11-09 17:08 | Emergency (ER) | payer MEDICAID ==
[2021-11-09] MEDS ORDERED: traMADol 50 MG Tab PO ONE (17:09)
[2021-11-09] MEDS ORDERED: Propofol 200 MG/20 ML SDV IV ONE (17:09)
[2021-11-09] MEDS ORDERED: Midazolam 1 MG/ML 2 ML SDV IM ONE (17:24)
[2021-11-09] MEDS ORDERED: HYDROmorphone 1 MG/ML Syringe IM ONE (17:25)
[2021-11-09] MEDS ORDERED: Sodium Chloride 0.9% 10 ML Syringe FLUSH PRN (18:05)
[2021-11-09] MEDS ORDERED: Sodium Chloride 0.9% 1,000 ML IV ONE (18:05)
[2021-11-09] MEDS ORDERED: Ibuprofen 800 MG Tab PO ONE (18:36)
[2021-11-09] MEDS ORDERED: traMADol 50 MG Tab ONE (18:44)
== END 2021-11-09 19:10 | disposition home or self-care (01) ==
LOC: DL.ED 17:08
DX: M24.412 Recurrent dislocation, left shoulder (principal); I10 Essential (primary) hypertension; Z88.5 Allergy status to narcotic agent; Z88.6 Allergy status to analgesic agent
CPT/HCPCS: 01634; 23650; 73030-LT; 99283-25; 99284; A9270-GY; J1170; J2250; J2704

== ENCOUNTER 2021-11-10 18:50 | Emergency (ER) | payer MEDICAID ==
[2021-11-10] MEDS ORDERED: Propofol 200 MG/20 ML SDV IV ONE (18:51)
[2021-11-10] MEDS ORDERED: LORazepam 2 MG/ML SDV IM ONE (18:53)
[2021-11-10] MEDS ORDERED: LORazepam 2 MG/ML SDV ONE (18:53)
[2021-11-10] MEDS ORDERED: levETIRAcetam in NaCl (iso-os) 1,000 MG in Premix Bag 1 BAG IV ONE ×2 (18:56)
[2021-11-10 19:36] LABS: ANION GAP 14.7 mEq/L (7-13); CHLORIDE,CL 105 mmol/L (98-107); SODIUM,NA 141 mmol/L (136-145)
== END 2021-11-10 21:03 | disposition left against medical advice (07) ==
LOC: DL.ED 18:50
DX: S43.005A Unspecified dislocation of left shoulder joint, initial encounter (principal); R56.9 Unspecified convulsions; I10 Essential (primary) hypertension; Z88.5 Allergy status to narcotic agent; Z88.8 Allergy status to other drugs, medicaments and biological substances; Z79.899 Other long term (current) drug therapy; X58.XXXA Exposure to other specified factors, initial encounter
CPT/HCPCS: 23650; 36415; 73020-LT; 73030-LT; 80053; 83605; 85025; 96372; 96374; 99152; 99284; 99284-25; J1953; J2060; J2704

== ENCOUNTER 2021-11-11 12:20 | Emergency (ER) | payer MEDICAID ==
[2021-11-11] MEDS ORDERED: Sodium Chloride 0.9% 10 ML Syringe FLUSH PRN (12:46)
[2021-11-11] MEDS ORDERED: levETIRAcetam in NaCl (iso-os) 1,500 MG in Premix Bag 1 BAG IV ONE ×2 (12:47)
[2021-11-11 13:18] LABS: ANION GAP 15.1 mEq/L (7-13); CHLORIDE,CL 105 mmol/L (98-107); SODIUM,NA 144 mmol/L (136-145)
[2021-11-11 13:20] LABS: AMPHETAMINES,URINE NEGATIVE (NEGATIVE); BARBITURATES,URINE POSITIVE (NEGATIVE); BENZODIAZEPINE,URINE POSITIVE (NEGATIVE); MDMA (ECSTASY), URINE NEGATIVE (NEGATIVE); METHADONE,URINE NEGATIVE (NEGATIVE); METHAMPHETAMINES,URINE NEGATIVE (NEGATIVE); OPIATES,URINE NEGATIVE (NEGATIVE); PHENCYCLIDINE,URINE NEGATIVE (NEGATIVE); TCA,URINE NEGATIVE (NEGATIVE)
[2021-11-11 13:21] LABS: OXYCODONE,URINE NEGATIVE (NEGATIVE)
[2021-11-11] MEDS ORDERED: Sodium Chloride 0.9% 1,000 ML IV ONE (13:57)
[2021-11-11 14:32] LABS: CORONAVIRUS COVID-19 NAA NEGATIVE (NEGATIVE); RESPIRATORY SYNCYTIAL VIR NAA NEGATIVE (NEGATIVE)
== END 2021-11-11 15:07 ==
LOC: DL.ED 12:20
DX: R56.9 Unspecified convulsions (principal); I10 Essential (primary) hypertension; Z88.5 Allergy status to narcotic agent; Z88.6 Allergy status to analgesic agent; Z72.0 Tobacco use; Z20.822 Contact with and (suspected) exposure to COVID-19
CPT/HCPCS: 0241U; 36415; 80053; 80305; 80307; 81003; 82550; 85025; 86140; 93005; 93010; 96374; 96375; 96376; 99285; J1953; J3360; J3490; J7030

== ENCOUNTER 2022-04-10 17:52 | Emergency (ER) | payer MEDICAID ==
[2022-04-10] MEDS ORDERED: Acetaminophen 500 MG Tab PO ONE (17:56)
[2022-04-10 18:19] LABS: AMPHETAMINES,URINE NEGATIVE (NEGATIVE); BARBITURATES,URINE NEGATIVE (NEGATIVE); BENZODIAZEPINE,URINE NEGATIVE (NEGATIVE); MDMA (ECSTASY), URINE NEGATIVE (NEGATIVE); METHADONE,URINE NEGATIVE (NEGATIVE); METHAMPHETAMINES,URINE NEGATIVE (NEGATIVE); OPIATES,URINE NEGATIVE (NEGATIVE); OXYCODONE,URINE NEGATIVE (NEGATIVE); PHENCYCLIDINE,URINE NEGATIVE (NEGATIVE); TCA,URINE NEGATIVE (NEGATIVE)
[2022-04-10 18:28] LABS: ANION GAP 10.9 mEq/L (7-13); CHLORIDE,CL 107 mmol/L (98-107); SODIUM,NA 143 mmol/L (136-145)
[2022-04-10 18:33] LABS: ESTIMATED GFR 77 mL/min (>=60)
== END 2022-04-10 18:25 | disposition left against medical advice (07) ==
LOC: DL.ED 17:52
DX: M25.512 Pain in left shoulder (principal); Z53.8 Procedure and treatment not carried out for other reasons; R56.9 Unspecified convulsions; I10 Essential (primary) hypertension; Z88.5 Allergy status to narcotic agent; Z88.6 Allergy status to analgesic agent
CPT/HCPCS: 36415; 73030; 80053; 80305; 80307; 81003; 83605; 83735; 84443; 85025; 86140; 99285; A9270

== ENCOUNTER 2023-06-24 14:13 | Emergency (ER) | payer MEDICAID, OTHER ==
[2023-06-24] MEDS ORDERED: OLANZapine 10 MG Vial IM ONE (14:21)
[2023-06-24 14:37] LABS: BASOPHILS PERCENT AUTO 1.2 % (0.0-1.0); EOSINOPHILS PERCENT AUTO 6.6 % (1.0-3.0); HEMATOCRIT 42.5 % (40.0-54.0); HEMOGLOBIN 14.4 g/dL (14.0-18.0); LYMPHOCYTES PERCENT AUTO 37.8 % (20.5-50.1); MEAN CORPUSCULAR HEMOGLOBIN 28.2 pg (27.0-34.0); MEAN CORPUSCULAR HGB CONC 33.9 g/dL (33.0-35.0); MEAN CORPUSCULAR VOLUME 83.3 fL (80-100); MONOCYTES PERCENT AUTO 12.9 % (2-8); NEUTROPHILS PERCENT AUTO 41.5 % (42.2-75.2); PLATELET COUNT,PLT 310 10^3/uL (150-450); WHITE BLOOD CELL COUNT,WBC 7.5 10^3/uL (5.0-10.0)
[2023-06-24 14:42] LABS: APPEARANCE,URINE CLEAR (CLEAR); BILIRUBIN,URINE NEGATIVE (NEGATIVE); COLOR,URINE DARK YELLOW (YELLOW); GLUCOSE,URINE NEGATIVE (NEGATIVE); KETONES,URINE NEGATIVE (NEGATIVE); LEUKOCYTE ESTERASE,URINE NEGATIVE (NEGATIVE); NITRITE,URINE NEGATIVE (NEGATIVE); OCCULT BLOOD,URINE TRACE-INTACT (NEGATIVE); PH,URINE 5.5 (5.0-9.0); PROTEIN,URINE NEGATIVE (NEGATIVE)
[2023-06-24] MEDS ORDERED: levETIRAcetam 500 MG Tab ONE (14:42)
[2023-06-24 14:46] LABS: AMPHETAMINES,URINE POSITIVE (NEGATIVE); BARBITURATES,URINE NEGATIVE (NEGATIVE); BENZODIAZEPINE,URINE NEGATIVE (NEGATIVE); MDMA (ECSTASY), URINE POSITIVE (NEGATIVE); METHADONE,URINE NEGATIVE (NEGATIVE); METHAMPHETAMINES,URINE POSITIVE (NEGATIVE); OPIATES,URINE NEGATIVE (NEGATIVE); OXYCODONE,URINE NEGATIVE (NEGATIVE); PHENCYCLIDINE,URINE NEGATIVE (NEGATIVE); TCA,URINE NEGATIVE (NEGATIVE)
[2023-06-24 14:49] LABS: AMORPHOUS SEDIMENT,URINE RARE /HPF (NOT SEEN); BACTERIA,URINE RARE /HPF (0-FEW/HPF); EPITHELIAL CELLS,URINE NOT SEEN /HPF (NOT SEEN); MUCUS,URINE RARE /LPF (NOT SEEN); WBC,URINE 0-5 /HPF (0-5/HPF)
[2023-06-24 15:02] LABS: A/G RATIO 0.9; ALANINE AMINOTRANSFERASE,ALT 36 U/L (16-63); ALBUMIN 3.6 g/dL (3.4-5.0); ALKALINE PHOSPHATASE 72 U/L (46-116); ANION GAP 10.7 mEq/L (7-13); ASPARTATE AMNIOTRANSFERASE,AST 23 U/L (15-37); BILIRUBIN TOTAL 0.5 mg/dL (0.2-1.0); BLOOD UREA NITROGEN,BUN 12 mg/dL (7-18); BUN/CREATININE RATIO 12.8 (No establ ref range); CALCIUM 8.4 mg/dL (8.5-10.1); CARBON DIOXIDE,CO2 28 mmol/L (21-32); CHLORIDE,CL 102 mmol/L (98-107); CREATININE 0.94 mg/dL (0.70-1.30); EST CRCL DRUG DOSING (CG) 105.11 mL/min; GLUCOSE RANDOM 100 mg/dL (70-99); POTASSIUM,K 3.7 mmol/L (3.5-5.1); PROTEIN TOTAL,TP 7.5 g/dL (6.4-8.2); SODIUM,NA 137 mmol/L (136-145)
[2023-06-24 15:03] LABS: ACETAMINOPHEN 0 ug/mL (10-30 (Therapeutic)); ESTIMATED GFR 108 mL/min (>=60); ETHANOL BLOOD MEDICAL < 3 mg/dL (0)
[2023-06-24] MEDS ORDERED: levETIRAcetam 500 MG Tab PO SCH (21:00)
== END 2023-06-24 19:27 ==
LOC: DL.ED 14:13
DX: F25.9 Schizoaffective disorder, unspecified (principal); R44.0 Auditory hallucinations; I10 Essential (primary) hypertension; J45.909 Unspecified asthma, uncomplicated; F17.210 Nicotine dependence, cigarettes, uncomplicated; Z86.16 Personal history of COVID-19; Z79.899 Other long term (current) drug therapy; Z88.5 Allergy status to narcotic agent
CPT/HCPCS: 36415; 80053; 80143; 80179; 80305-QW; 80307; 81001; 85025; 96372; 99284; 99285; A9270-GY; J2405